=== PATIENT | male | born 1995 | race Caucasian/White ===

== ENCOUNTER 2024-11-10 14:33 | Emergency (ER) | payer OTHER, SELFPAY ==
--- NOTE | ~2024-11-10 | CT_ITS ---
EXAMINATION: CT abdomen pelvis w con DATE: 11/10/2024 17:01 INDICATION: Left upper quadrant abdominal pain. Flank pain. TECHNIQUE: Computed tomography (CT) of the abdomen and pelvis was performed with 100 mL Omnipaque 350 intravenous contrast. Automated exposure control and iterative reconstruction technique were employe d. The dose-length product was 512.62 mGy-cm. COMPARISON: Chest CT 12/09/2013 FINDINGS: The visualized portions of the lung bases are clear without pneumonia or pleural effusion. The heart size is normal. No pericardial effusion. The liver demonstrates steatosis adjacent to the l igamentum teres. The gallbladder, spleen, pancreas, adrenal glands, and kidneys are normal. The prost ate is mildly enlarged. The appendix is normal. There are no dilated loops of bowel. There are no pat hologically enlarged lymph nodes. There is no free intraperitoneal fluid. There are chronic bilateral L5 pars defects. There is 4 mm anterolisthesis of L5 on S1. There is mild thoracic and lumbar spondy losis. IMPRESSION: 1. No etiology for the patient's symptoms. Reviewed, dictated and finalized at location A. IAN RUBBER
[2024-11-10 14:58] VITALS: BP 115/81; PULSE 102; RESP 18; TEMP 36.7; O2SAT 100
[2024-11-10 16:17] LABS: Basophils Percent Auto 0.4 % (0.2-1.2); Eosinophils Absolute Auto 0.2 K/mm3 (0-0.3); Eosinophils Percent Auto 1.8 % (0-4.4); Hemoglobin 15.2 g/dL (14.0-18.0); Immature Granulocyte Absolute 0.02 K/mm3 (0.00-0.031); Immature Granulocyte Percent A 0.2 % (0-0.5); Lymphocytes Absolute Auto 2.41 K/mm3 (0.9-3.2); Lymphocytes Percent Auto 24.4 % (18.3-44.2); Mean Corpuscular HGB Conc 36.2 g/dl (32-36); Mean Corpuscular Hemoglobin 32.6 pg (26-34); Mean Corpuscular Volume 90.1 fl (80-100); Mean Platelet Volume 9.7 fl (7.4-10.4); Monocytes Absolute Auto 0.8 K/mm3 (0.1-0.6); Neutrophils Absolute Auto 6.4 K/mm3 (1.3-6.7); Neutrophils Percent Auto 65.2 % (45.5-73.1); Platelet Count Result 195 k/mm3 (150-375); Red Blood Count 4.66 M/mm3 (4.6-6.20); Red Cell Distribution Width 12.1 % (11.5-14.5); White Blood Count 9.9 K/mm3 (4.5-10.0)
[2024-11-10 16:19] LABS: Add Urine Microscopic? NO; Appearance Urine Clear (Clear); Bilirubin Urine Negative (Negative); Blood Urine Negative (Negative); Color Urine Yellow (Yellow); Glucose Urine UA Negative (Negative); Ketones Urine 1+ mg/dL (Negative); Leukocyte Esterase Ur Negative LEU/UL (Negative); Nitrate Urine Negative (Negative); Protein Urine Negative (Negative); Specific Grav Ur 1.019 (1.001-1.035); pH Urine 5.5 (5.0-9.0)
[2024-11-10 16:42] LABS: Alanine Aminotransferase 18 U/L (6-50); Albumin Level 4.9 g/dL (3.5-5.1); Alkaline Phosphatase 90 U/L (38-126); Anion Gap 4 mmol/L (4-12); Aspartate Amino Transferase 27 U/L (17-59); Bilirubin,Total 0.7 mg/dL (0.2-1.3); Blood Urea Nitrogen 17 mg/dL (9-20); Calcium 9.9 mg/dL (8.4-10.2); Carbon Dioxide 30 mmol/L (22-30); Chloride 103 mmol/L (98-107); Estimated CRCL calculation 137 ml/min; Estimated Glomerular Filt Rate > 60; Glucose 97 mg/dL (65-110); Lipase 60 U/L (23-300); Potassium 4.6 mmol/L (3.4-5.0); Sodium 137 mmol/L (137-145)
[2024-11-10] MEDS: SODIUM CHLORIDE 0.9% IV 1,000 ML 999 ML IV CONT (16:42)
--- NOTE | 2024-11-10 17:56 | ED_ITS ---
HPI - General Adult General Chief complaint: Abdominal Pain Stated complaint: abd pain Time Seen by Provider: 11/10/24 16:06 History of Present Illness HPI narrative: this is a 28-year-old male presenting ED chief complaint of abd pain. Patient says the pain started yesterday. The sharp pain in his left upper quadrant. It is nonradiating, constant in intensity, he has had this once 5 years ago and resolved without intervention. No exacerbating alleviating symptoms. No fevers chills nausea vomiting diarrhea. No urinary symptoms. He has had constipation. Related Data Allergies Allergy/AdvReac Type Severity Reaction Status Date / Time naproxyn Allergy Mild unknown Uncoded 03/03/18 14:18 Exam 2 Narrative: APPEARANCE: No apparent distress. Head: atraumatic. EYES: EOMI, NOSE: Atraumatic NECK: Trachea midline RESPIRATORY: No increased rate of breathing clear to auscultation CARDIOVASCULAR: RRR, no peripheral edema ABDOMINAL: Non-distended soft nontender no CVA tenderness MUSCULOSKELETAl: No obvious deformities NEURO: Alert. Moving 4/4 extremities SKIN:: Warm, dry. Normal color PSYCHIATRIC: Normal affect Course Vital Signs Vital signs: Vital Signs Temperature 98.1 F 11/10/24 14:58 Pulse Rate 102 H 11/10/24 14:58 Respiratory Rate 18 11/10/24 14:58 Blood Pressure 115/81 11/10/24 14:58 Pulse Oximetry 100 11/10/24 14:58 Oxygen Delivery Room Air 11/10/24 14:58 Temperature 98.1 F 11/10/24 14:58 Pulse Rate 102 H 11/10/24 14:58 Respiratory Rate 18 11/10/24 14:58 Blood Pressure 115/81 11/10/24 14:58 Pulse Oximetry 100 11/10/24 14:58 Oxygen Delivery Room Air 11/10/24 14:58 Medical Decision Making [facility] Narrative Medical decision making narrative: -Course: 28-year-old male presenting with nonspecific abdominal pain. Abdominal exam is benign. Mildly tachycardic in triage but normal heart rate on my exam. CT did not reveal an Etiology the patient's pain. Urinary studies and blood work were unremarkable. Patient noted that he has been constipated which could be a cause of his pain. Patient discharged with primary care follow-up return precautions. -DDX includes but is not limited to: Gastritis, constipation, gallbladder disease, pancreatitis, kidney disease -Independent interpretation of studies: labs and imaging reviewed -Interventions:1 L NS -Shared decision making / Disposition:discharged. Vital Signs Vital Signs: Vital Signs Temperature 98.1 F 11/10/24 14:58 Pulse Rate 102 H 11/10/24 14:58 Respiratory Rate 18 11/10/24 14:58 Blood Pressure 115/81 11/10/24 14:58 Pulse Oximetry 100 11/10/24 14:58 Oxygen Delivery Room Air 11/10/24 14:58 Temperature 98.1 F 11/10/24 14:58 Pulse Rate 102 H 11/10/24 14:58 Respiratory Rate 18 11/10/24 14:58 Blood Pressure 115/81 11/10/24 14:58 Pulse Oximetry 100 11/10/24 14:58 Oxygen Delivery Room Air 11/10/24 14:58 Lab Data 11/10/24 16:10 11/10/24 16:10 Labs: Lab Results 11/10/24 Range/Units 16:10 WBC 9.9 (4.5-10.0) K/mm3 RBC 4.66 (4.6-6.20) M/mm3 Hgb 15.2 (14.0-18.0) g/dL Hct 42.0 (42.0-52.0) % MCV 90.1 (80-100) fl MCH 32.6 (26-34) pg MCHC 36.2 H (32-36) g/dl RDW 12.1 (11.5-14.5) % Plt Count 195 (150-375) k/mm3 MPV 9.7 (7.4-10.4) fl Immature Gran % (Auto) 0.2 (0-0.5) % Neut % (Auto) 65.2 (45.5-73.1) % Lymph % (Auto) 24.4 (18.3-44.2) % [place] % (Auto) 8.0 (2.6-8.5) % Eos % (Auto) 1.8 (0-4.4) % Baso % (Auto) 0.4 (0.2-1.2) % Lymph # (Auto) 2.41 (0.9-3.2) K/mm3 [place] # (Auto) 0.8 H (0.1-0.6) K/mm3 Eos # (Auto) 0.2 (0-0.3) K/mm3 Baso # (Auto) 0.0 (0.0-0.1) K/mm3 Abs Immat Gran (auto) 0.02 (0.00-0.031) K/mm3 Absolute Neuts (auto) 6.4 (1.3-6.7) K/mm3 Absolute Nucleated RBC 0.000 (0.0-0.012) K/mm3 Nucleated RBC % 0.0 (0.0-0.2) % Sodium 137 (137-145) mmol/L Potassium 4.6 (3.4-5.0) mmol/L Chloride 103 (98-107) mmol/L Carbon Dioxide 30 (22-30) mmol/L Anion Gap 4 (4-12) mmol/L BUN 17 (9-20) mg/dL Creatinine 0.80 (0.7-1.3) mg/dL Estim Creat Clear Calc 137 ml/min Estimated GFR > 60 (59 - ) Glucose 97 (65-110) mg/dL Calcium 9.9 (8.4-10.2) mg/dL Total Bilirubin 0.7 (0.2-1.3) mg/dL AST 27 (17-59) U/L ALT 18 (6-50) U/L Alkaline Phosphatase 90 (38-126) U/L Total Protein 8.0 (6.3-8.2) g/dL Albumin 4.9 (3.5-5.1) g/dL Lipase 60 (23-300) U/L Urine Color Yellow (Yellow) Urine Appearance Clear (Clear) Urine pH 5.5 (5.0-9.0) Ur Specific [place] 1.019 (1.001-1.035) Urine Protein Negative (Negative) mg/dL Urine Glucose (UA) Negative (Negative) mg/dL Urine Ketones 1+ H (Negative) mg/dL Ur Blood (Man) Negative (Negative) Urine Nitrate Negative (Negative) Urine Bilirubin Negative (Negative) Urine Urobilinogen 1.0 (<2.0) mg/dL Leukocyte Esterase Rfl Negative (Negative) MAXINE/UL Discharge Plan Discharge Clinical Impression: Abdominal pain Patient Disposition: Home, Self-Care Condition: Stable Instructions: Antibiotic Form, Abdominal Pain (ED) Additional Instructions: you were seen in the emergency department for abdominal pain. There is no clear source of your pain. It may be related to constipation and you can try drinking plenty of fluids and using stool softeners. Please follow-up with your primary care physician. If you develop severe abdominal pain or intractable nausea vomiting please return to the ED for re-evaluation. Patient Language: Faroese Follow-up/Referrals: Rick,Sola Grant NP [Primary Care Provider] -
[2024-11-10 18:08] VITALS: BP 136/78; PULSE 79; RESP 17; TEMP 36.8; O2SAT 98
== END 2024-11-10 18:13 | disposition home or self-care (01) ==
PROVIDERS: Emergency Medicine; Emergency Provider Emergency Medicine; PCP Nurse Practitioner
DX: R10.12 Left upper quadrant pain (principal)
CPT/HCPCS: 36415; 74177; 80053; 81003; 83690; 85025; 96360; 99284; J7030; Q9967

== ENCOUNTER 2025-11-22 17:29 | Emergency (ER) | payer OTHER, SELFPAY ==
--- OUTSIDE RECORDS SUMMARY | 2025-11-22 17:31 | XMS_ITS | Clinical Summary ---
Author Organization [facility] Address [facility] [place] [address] Care Team Providers Care Hand Sole Sewer Name Role Phone None, Provider MD Primary Care Provider Unavaila ble Allergies No known active allergies Medications No known medications Active Problems No known active problems Family History Medical History Relation Comments Heart Disease Maternal Grandfather Relation Status Comments Maternal Grandfather Social History Tobacco Use Types Packs/Day Years Used Date Smoking Tobacco: Every Day Cigarettes Smokeless Tobacco: Never Alcohol Use Standard Drinks/Week Comments Yes 0 (1 standard drink = 0.6 oz pur e alcohol) rarely Sex and Gender Information Value Date Recorded Sex Assigned at Not on file Legal Sex Male 8:52 PM CDT Gender Identity Not on file Sexual Orientation Not on file Last Filed Vital Signs Vital Sign Reading Time Taken Comments Blood Pressure 142/66 02/19/2024 12:11 PM CDT Pulse 66 02/19/2024 12:11 PM CDT Temperature 36.7 C (98.1 F) 02/19/2024 12:11 PM CDT Respiratory Rate 18 02/19/2024 12:11 PM CDT Oxygen Saturation 99% 02/19/2024 12:11 PM CDT Inhaled Oxygen Concentration - - Weight 102.1 kg (225 lb) 02/19/2024 10:15 AM CDT Height 188 cm (6' 2) 02/19/2024 10:15 AM CDT Body Mass Index 28.89 02/19/2024 10:15 AM CDT Plan of Treatment Health Maintenance Due Date Last Done Comments Annual Physical 1996 Hepatitis C 2011 DTaP, Tdap and Td Vaccines ( 1 - Tdap) 2012 02/14/1994 Hepatitis B Vaccines (1 of 3 - 19+ 3-dose series) 2012 Pneumococcal Vaccine: Pediat rics (0 to 5 Years) and At-Risk Patients (6 to 49 Years) (1 of 2 - PCV) 2012 HPV Vaccines (1 - 3-dose SCD M series) 2020 COVID-19 Vaccine (1 - 2024-2 6 season) 2025 Influenza Adult (#1) 2025 Hepatitis A Vaccines Aged Out No long er eligible based on patient's age to complete this topic Meningococcal B Vaccine Aged Out No l onger eligible based on patient's age to complete this topic Meningococcal Vaccine Aged Out No harley shoshana eligible based on patient's age to complete this topic RSV Immunizations Under 20 Months Aged Out No longer eligible based on patient's age to complete this topic [place] [address] [place] [address] Care Teams Hand Sole Sewer Relationship Specialty Start Date End Date None, Provider, PCP - General 06/24/20
--- OUTSIDE RECORDS SUMMARY | 2025-11-22 17:31 | XMS_ITS | Clinical Summary ---
Author Organization [facility] [employer] Address [address] [place] [address] Care Team Providers Care Milking Worker Name Role Phone Sandra Jimenez MD Primary Care Provider Source Comments [facility] [employer],non-owned Affiliates and Associated Physician Practices is amultiple site organization consisting of ambulatory clinics and hospital sitesin [place], [place], [place] and [place]. This disclosure is being madepursuant to the Care Everywhere program and may not contain all information available regarding this patient. Last updated 18.[facility] [employer] Allergies No known active allergies Medications * Be aware that medications may not be up to date on this document. Alwaysverify current medications with the patient. 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 Gender Identity Not on file Sexual Orientation Not on file Plan of Treatment Health Maintenance Due Date Last Done Comments HIV SCREENING 2008 HEPATITIS C SCREENING 12/12/2011 DTAP/TDAP/TD VACCINES (1 - Tdap) 2012 HEPATITIS B VACCINE (1 of 3 - 19+ 3-dose series) 2012 HPV VACCINE (1 - 3-dose SCDM series) 2020 DEPRESSION SCREENING 11/25/2024 COVID-19 VACCINE (1 - 2024-2 6 season) 2025 INFLUENZA VACCINE (#1) 2025 ZOSTER VACCINE (1 of 2) 2043 HIB VACCINE Aged Out No longer eligi ble based on patient's age to complete this topic MENINGOCOCCAL (Group B) VACC INE SHARED DECISION-MAKING Aged Out No longer eligibl e based on patient's age to complete this topic MENINGOCOCCAL GROUPS A/C/Y/W VACCINE Aged Out No longer eligible b ased on patient's age to complete this topic PNEUMOCOCCAL VACCINE Aged Out No long er eligible based on patient's age to complete this topic Care Teams Milking Worker Relationship Specialty Start Date End Date Sandra Jimenez MD [address] [place] [id number] PCP - General 12/06/11
--- OUTSIDE RECORDS SUMMARY | 2025-11-22 17:31 | XMS_ITS | Clinical Summary ---
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 Gender Identity Not on file Sexual Orientation Not on file Plan of Treatment Health Maintenance Due Date Last Done Comments Hepatitis C Virus (HCV) Screening 1993 TdaP Immunization 1993 Human Papillomavirus (HPV) Immunization (1 - 3-dose SCDM series) 2020 Influenza Immunization (#1) 2025 SARS-COV-2 Immunization ( season) 2025 Respiratory Syncytial Virus (RSV) Immunization (Adult) (1 - 1-dose 75+ series) 2068 DTaP/Tdap/Td Immunization Discontinued 1993, 02/14/1994 Hepatitis B Immunization Completed 994, 02/14/1994, 1993 Meningococcal Immunization (ACWY) Aged Out No longer eligible based on patient's age to complete this topic Pneumococcal Immunization Combined Aged Out No longer eligible based on patient's age to complete this topic Rotavirus Immunization Aged Out No lo nger eligible based on patient's age to complete this topic
[2025-11-22 17:37] VITALS: BP 131/84; PULSE 105; RESP 12; TEMP 36.4; O2SAT 100
--- NOTE | 2025-11-22 18:47 | ED_ITS ---
HPI - Nausea/Vomiting/Diarrhea General Chief complaint: Nausea/Vomiting/Diarrhea Stated complaint: RT Side Pain Time Seen by Provider: 11/22/25 18:36 Source: patient and RN notes reviewed Mode of arrival: ambulatory Limitations: no limitations History of Present Illness HPI Narrative: 29-year-old male patient presents today complaining of a one-week history of right upper quadrant pain worsening since onset, with nausea and chills. Pain increases with eating and lying prone. Denies vomiting or fever. Normal stool today. Currently rates his pain 6/10 and has tried an ice pack with mild relief. Smokes 1 pack per day. Never drinks alcohol. Related Data Home Medications ?Medication ?Instructions ?Recorded ?Confirmed ?Last Taken ?Type No Home Medications 11/22/25 11/22/25 U nknown History Allergies Allergy/AdvReac Type Severity Reaction Status Date / Time No Known Allergies Allergy Verified 11/22/25 17:57 [facility] Social History Social History (Updated 11/22/25 @ 18:52 by Jacqueline Felder, ESTHETICS INSTRUCTOR, MEDICAL ASSISTANT DERMATOLOGY) Smoking packs per day: 1 Smoking cigarettes per day: 20.0 Alcohol intake: never Comments At time of signature, I have reviewed and agree with nursing past medical, surgical, social and family history unless otherwise noted. Please see nursing chart for further information. There is no relevant family history pertinent to the presenting complaint Exam Narrative: GENERAL: Well-appearing, well-nourished, and in no acute distress. HEAD: Normocephalic, atraumatic. EYES: EOMI. No redness or drainage. Conjunctivae normal. ENT: Mucous membranes pink and moist. Nares clear. No rhinorrhea. TMs normal bilaterally. Throat normal. Uvula midline. NECK: Normal AROM. Supple. No lymphadenopathy. CHEST: No respiratory distress. Clear to auscultation. HEART: Regular rate and rhythm. No murmur appreciated. ABDOMEN: Soft,nondistended, normal active bowel sounds. Right upper quadrant tenderness with palpable liver margin. EXTREMITIES: Normal range of motion. No edema. SKIN: Warm, dry, no rash. Capillary refill normal. Normal skin turgor. NEURO: No focal deficits. Alert and oriented x3. Gait steady. PSYCH: Normal affect. No signs of depression or anxiety. Course Course Level of Care: Express Care Visit Vital Signs Vital signs: Vital Signs Temperature 97.5 F L 12/29/25 17:37 Pulse Rate 105 H 11/22/25 17:37 Respiratory Rate 12 11/22/25 17:37 Blood Pressure 131/84 11/22/25 17:37 Pulse Oximetry 100 11/22/25 17:37 Oxygen Delivery Room Air 11/22/25 17:37 Temperature 97.5 F L 11/22/25 17:37 Pulse Rate 105 H 11/22/25 17:37 Respiratory Rate 12 11/22/25 17:37 Blood Pressure 131/84 11/22/25 17:37 Pulse Oximetry 100 11/22/25 17:37 Oxygen Delivery Room Air 11/22/25 17:37 Reviewed Transfer Transfered to: [facility]: Other (Private vehicle) Transfer rationale: Right upper quadrant abdominal pain Accepting physician: Selvin. Report given to Jose Morris PA-C [facility] MDM Narrative Medical decision making narrative: 29-year-old male patient presents today complaining of a one-week history of right upper quadrant pain worsening since onset, with nausea and chills. Pain increases with eating and lying prone. Denies vomiting or fever. Normal stool today. Currently rates his pain 6/10 and has tried an ice pack with mild relief. Smokes 1 pack per day. Never drinks alcohol. Upon exam, patient has tenderness in the right upper quadrant with palpable liver edge. No rebound or guarding. Patient will be transferred to the ER at [facility] for further evaluation and treatment. Vital signs stable with slight tachycardia at 105. Patient agrees with plan. Differential Diagnosis Differential Diagnosis: Cholecystitis, gallstones, hepatitis Critical Care Time Critical Care Time Critical Care Time: No Discharge Plan Discharge Clinical Impression: Abdominal pain, acute, right upper quadrant Patient Disposition: Acute Care Hospital Condition: Stable Patient Language: Italian Prescriptions: No Action No Home Medications Follow-up/Referrals: PHYSICIAN,RODEO CLOWN [Primary Care Provider, Internal Medicine] Time of Disposition: 18:50
== END 2025-11-22 18:53 | disposition short-term general hospital (02) ==
PROVIDERS: Emergency Provider Nurse Practitioner
DX: R10.11 Right upper quadrant pain (principal); R11.0 Nausea; R68.83 Chills (without fever)
CPT/HCPCS: 99212; G0463

== ENCOUNTER 2025-11-22 19:06 | Emergency (ER) | payer OTHER, SELFPAY ==
--- NOTE | ~2025-11-22 | CT_ITS ---
EXAMINATION: CT abdomen pelvis w con DATE: 11/23/2025 00:50 INDICATION: Right upper quadrant abdominal pain. TECHNIQUE: Computed tomography (CT) of the abdomen and pelvis was performed with 100 mL Omnipaque 350 intravenous contrast. Automated exposure control and iterative reconstruction technique were employed. The dose-length product was 514.30 mGy-cm. COMPARISON: CT abdomen and pelvis 11/10/2024 FINDINGS: The visualized portions of the lung bases are clear without pneumonia or pleural effusion. The heart size is normal. No pericardial effusion. The liver, gallbladder, spleen, pancreas, adrenal glands, and kidneys are normal. There are no dilated loops of bowel. The appendix is normal. There are no pathologically enlarged lymph nodes. There is no ascites. 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 There is 5 mm anterolisthesis of L5 on S1. There is mild thoracic spondylosis and moderate lumbar spondylosis. IMPRESSION: 1. No etiology for the patient's symptoms. Reviewed, dictated and finalized at location E. BASTING COLLAR BASTER
[2025-11-22 19:09] VITALS: BP 145/88; PULSE 112; RESP 18; TEMP 36.7; O2SAT 100
--- OUTSIDE RECORDS SUMMARY | 2025-11-22 19:09 | XMS_ITS | Clinical Summary ---
Author Organization 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
--- OUTSIDE RECORDS SUMMARY | 2025-11-22 19:09 | XMS_ITS | Clinical Summary ---
Author Organization [facility] Address [facility] [place] [address] Care Team Providers Care Federal Mediator Name Role Phone None, Provider MD Primary [...] patient's age to complete this topic [place] [address] [place] [address] Care Teams Federal Mediator Relationship Specialty Start Date End Date None, Provider, PCP - General 06/24/20
[2025-11-22 23:09] VITALS: BP 159/76; PULSE 90; RESP 18; TEMP 36.3; O2SAT 100
[2025-11-22 23:30] LABS: Hematocrit 45.2 % (42.0-52.0); Hemoglobin 16.2 g/dL (14.0-18.0); Immature Granulocyte Percent A 0.1 % (0-0.5); Lymphocytes Absolute Auto 1.50 K/mm3 (0.9-3.2); Mean Corpuscular HGB Conc 35.8 g/dl (32-36); Mean Corpuscular Hemoglobin 32.5 pg (26-34); Mean Corpuscular Volume 90.6 fl (80-100); Nucleated Red Blood Cells Absolute Auto 0.000 K/mm3 (0.0-0.012); Nucleated Red Blood Cells Perc 0.0 % (0.0-0.2); Platelet Count Result 185 k/mm3 (150-375); Red Blood Count 4.99 M/mm3 (4.6-6.20); White Blood Count 8.1 K/mm3 (4.5-10.0)
[2025-11-22 23:33] LABS: Add Urine Microscopic? NO; Appearance Urine Clear (Clear); Glucose Urine UA Negative (Negative); Leukocyte Esterase Ur Negative LEU/UL (Negative); Nitrate Urine Negative (Negative); Specific Grav Ur 1.012 (1.001-1.035)
[2025-11-22 23:39] LABS: Alanine Aminotransferase 29 U/L (6-50); Albumin Level 4.8 g/dL (3.5-5.1); Alkaline Phosphatase 114 U/L (38-126); Anion Gap 10 mmol/L (4-12); Aspartate Amino Transferase 31 U/L (17-59); Bilirubin,Total 0.5 mg/dL (0.2-1.3); Blood Urea Nitrogen 12 mg/dL (9-20); Calcium 9.5 mg/dL (8.4-10.2); Carbon Dioxide 26 mmol/L (22-30); Chloride 103 mmol/L (98-107); Estimated CRCL calculation 131 ml/min; Estimated Glomerular Filt Rate > 60; Glucose 109 mg/dL (65-110); Lipase 45 U/L (23-300); Potassium 4.1 mmol/L (3.4-5.0); Sodium 139 mmol/L (137-145); Total Protein 8.2 g/dL (6.3-8.2)
--- NOTE | 2025-11-23 00:31 | ED_ITS ---
HPI - Abdominal Pain General Chief Complaint: Abdominal Pain <Amita Morris PA-C - Last Filed: 11/24/25 17:36> Stated Complaint: RUQ pain with nausea x 1 week <Amita Morris PA-C - Last Filed: 11/24/25 17:36> Time Seen by Provider: 11/23/25 00:08 <Amita Morris PA-C - Last Filed: 11/24/25 17:36> Source: patient <Amita TaraSammy NAKUL Morris Last Filed: 11/24/25 17:36> Mode of arrival: ambulatory <NAKUL Baer Last Filed: 11/24/25 17:36> Limitations: no limitations <NAKUL Baer Last Filed: 11/24/25 17:36> History of Present Illness HPI narrative: This is a 29 year old male that presents to the ER for right upper quadrant abdominal pain. Worsening over the last week. Reports associated nausea. No known alleviating or exacerbating factors. Denies fevers, vomiting. <Amita Morris PA-C - Last Filed: 11/24/25 17:36> Related Data Home Medications: Home Medications ?Medication ?Instructions ?Recorded ?Confirmed ?Last Taken ?Type No Home Medications 11/22/25 11/22/25 U nknown History <NAKUL Baer Last Filed: 11/24/25 17:36> Allergies/Adverse Reactions: Allergies Allergy/AdvReac Type Severity Reaction Status Date / Time No Known Allergies Allergy Verified 11/22/25 17:57 <Amita Morris PA-C - Last Filed: 11/24/25 17:36> Review of Systems 2 Review of Systems: All systems reviewed & are unremarkable except as noted in HPI and below <NAKUL Baer Last Filed: 11/24/25 17:36> [facility] Social History Social History: Social History (Updated 11/22/25 @ 18:52 by Jacqueline Felder, [employer] MERCHANDISING, COMPOSITE SCIENCE TEACHER) Smoking packs per day: 1 Smoking cigarettes per day: 20.0 Alcohol intake: never <Amita Morris PA-C - Last Filed: 11/24/25 17:36> Exam 2 Narrative: GENERAL: Well-appearing, well-nourished, and in no acute distress. HEAD: Normocephalic, atraumatic. EYES: EOMI. CHEST: Clear to auscultation. No respiratory distress. No wheezes rales or rhonchi HEART: Regular rate and rhythm. No murmur heard. Normal peripheral pulses. ABDOMEN: Soft, nondistended, normal active bowel sounds. Mild tenderness to palpation in the right upper quadrant, without guardin EXTREMITIES: Normal range of motion. No edema. SKIN: Warm, dry, no rash. NEURO: No focal deficits. Alert and oriented x3. PSYCH: Normal mood and affect <Amita Morris PA-C - Last Filed: 11/24/25 17:36> Course Course Emergency Course: Patient care signed out by previous provider with CT pending and likely discharge if unremarkable. CT unremarkable. VSS Discharge. <Kyle Palmer MD - Last Filed: 11/24/25 22:08> Vital Signs Vital signs: Vital Signs Temperature 36.7 C 11/22/25 19:09 Pulse Rate 112 H 11/22/25 19:09 Respiratory Rate 18 11/22/25 19:09 Blood Pressure 145/88 H 11/22/25 19:09 Pulse Oximetry 100 11/22/25 19:09 Oxygen Delivery Room Air 11/22/25 19:09 Temperature 36.4 C 11/23/25 06:30 Pulse Rate 72 11/23/25 06:30 Respiratory Rate 14 11/23/25 06:30 Blood Pressure 147/91 H 11/23/25 06:30 Pulse Oximetry 100 11/23/25 06:30 Oxygen Delivery Room Air 11/22/25 19:09 <Amita Morris PA-C - Last Filed: 11/24/25 17:36> Vital Signs Temperature 36.7 C 11/22/25 19:09 Pulse Rate 112 H 11/22/25 19:09 Respiratory Rate 18 11/22/25 19:09 Blood Pressure 145/88 H 11/22/25 19:09 Pulse Oximetry 100 11/22/25 19:09 Oxygen Delivery Room Air 11/22/25 19:09 Temperature 36.4 C 11/23/25 06:30 Pulse Rate 72 11/23/25 06:30 Respiratory Rate 14 11/23/25 06:30 Blood Pressure 147/91 H 11/23/25 06:30 Pulse Oximetry 100 11/23/25 06:30 Oxygen Delivery Room Air 11/22/25 19:09 <Kyle Palmer MD - Last Filed: 11/24/25 22:08> [facility] Narrative Medical decision making narrative: Patient presents the emergency department for right upper quadrant abdominal pain. He is afebrile and nontoxic appearing. Tachycardic upon arrival, this normalized without intervention. Cbc without leukocytosis. Metabolic panel without concerning findings. Lipase is normal. Urine without evidence of infection. Care taken over by Dr. Palmer at shift change pending CT scan results <Amita Morris PA-C - Last Filed: 11/24/25 17:36> Differential Diagnosis Differential Diagnosis: Biliary colic, cholecystitis, GERD, esophagitis, pancreatitis <Amita Morris PA-C - Last Filed: 11/24/25 17:36> Lab Data [facility] Lab Attestation statement: I personally reviewed the patient's lab results. <Amita Morris PA-C - Last Filed: 11/24/25 17:36> Result diagrams: 11/22/25 23:06 11/22/25 23:06 <Amita Morris PA-C - Last Filed: 11/24/25 17:36> Labs: Lab Results 11/22/25 Range/Units 23:06 WBC 8.1 (4.5-10.0) K/mm3 RBC 4.99 (4.6-6.20) M/mm3 Hgb 16.2 (14.0-18.0) g/dL Hct 45.2 (42.0-52.0) % MCV 90.6 (80-100) fl MCH 32.5 (26-34) pg MCHC 35.8 (32-36) g/dl RDW 12.3 (11.5-14.5) % Plt Count 185 (150-375) k/mm3 MPV 9.9 (7.4-10.4) fl Immature Gran % (Auto) 0.1 (0-0.5) % Neut % (Auto) 68.1 (45.5-73.1) % Lymph % (Auto) 18.5 (18.3-44.2) % [place] % (Auto) 12.4 H (2.6-8.5) % Eos % (Auto) 0.4 (0-4.4) % Baso % (Auto) 0.5 (0.2-1.2) % Lymph # (Auto) 1.50 (0.9-3.2) K/mm3 [place] # (Auto) 1.0 H (0.1-0.6) K/mm3 Eos # (Auto) 0.0 (0-0.3) K/mm3 Baso # (Auto) 0.0 (0.0-0.1) K/mm3 Abs Immat Gran (auto) 0.01 (0.00-0.031) K/mm3 Absolute Neuts (auto) 5.5 (1.3-6.7) K/mm3 Absolute Nucleated RBC 0.000 (0.0-0.012) K/mm3 Nucleated RBC % 0.0 (0.0-0.2) % Sodium 139 (137-145) mmol/L Potassium 4.1 (3.4-5.0) mmol/L Chloride 103 (98-107) mmol/L Carbon Dioxide 26 (22-30) mmol/L Anion Gap 10 (4-12) mmol/L BUN 12 D (9-20) mg/dL Creatinine 0.83 (0.7-1.3) mg/dL Estim Creat Clear Calc 131 ml/min Estimated GFR > 60 (59 - ) Glucose 109 (65-110) mg/dL Calcium 9.5 (8.4-10.2) mg/dL Total Bilirubin 0.5 (0.2-1.3) mg/dL AST 31 (17-59) U/L ALT 29 (6-50) U/L Alkaline Phosphatase 114 (38-126) U/L Total Protein 8.2 (6.3-8.2) g/dL Albumin 4.8 (3.5-5.1) g/dL Lipase 45 (23-300) U/L Urine Color Yellow (Yellow) Urine Appearance Clear (Clear) Urine pH 5.5 (5.0-9.0) Ur Specific [place] 1.012 (1.001-1.035) Urine Protein Negative (Negative) mg/dL Urine Glucose (UA) Negative (Negative) mg/dL Urine Ketones Trace H (Negative) mg/dL Ur Blood (Man) Negative (Negative) Urine Nitrate Negative (Negative) Urine Bilirubin Negative (Negative) Urine Urobilinogen 1.0 (<2.0) mg/dL Leukocyte Esterase Rfl Negative (Negative) MAXINE/UL <Amita Morris PA-C - Last Filed: 11/24/25 17:36> Lab Results 11/22/25 Range/Units 23:06 WBC 8.1 (4.5-10.0) K/mm3 RBC 4.99 (4.6-6.20) M/mm3 Hgb 16.2 (14.0-18.0) g/dL Hct 45.2 (42.0-52.0) % MCV 90.6 (80-100) fl MCH 32.5 (26-34) pg MCHC 35.8 (32-36) g/dl RDW 12.3 (11.5-14.5) % Plt Count 185 (150-375) k/mm3 MPV 9.9 (7.4-10.4) fl Immature Gran % (Auto) 0.1 (0-0.5) % Neut % (Auto) 68.1 (45.5-73.1) % Lymph % (Auto) 18.5 (18.3-44.2) % [place] % (Auto) 12.4 H (2.6-8.5) % Eos % (Auto) 0.4 (0-4.4) % Baso % (Auto) 0.5 (0.2-1.2) % Lymph # (Auto) 1.50 (0.9-3.2) K/mm3 [place] # (Auto) 1.0 H (0.1-0.6) K/mm3 Eos # (Auto) 0.0 (0-0.3) K/mm3 Baso # (Auto) 0.0 (0.0-0.1) K/mm3 Abs Immat Gran (auto) 0.01 (0.00-0.031) K/mm3 Absolute Neuts (auto) 5.5 (1.3-6.7) K/mm3 Absolute Nucleated RBC 0.000 (0.0-0.012) K/mm3 Nucleated RBC % 0.0 (0.0-0.2) % Sodium 139 (137-145) mmol/L Potassium 4.1 (3.4-5.0) mmol/L Chloride 103 (98-107) mmol/L Carbon Dioxide 26 (22-30) mmol/L Anion Gap 10 (4-12) mmol/L BUN 12 D (9-20) mg/dL Creatinine 0.83 (0.7-1.3) mg/dL Estim Creat Clear Calc 131 ml/min Estimated GFR > 60 (59 - ) Glucose 109 (65-110) mg/dL Calcium 9.5 (8.4-10.2) mg/dL Total Bilirubin 0.5 (0.2-1.3) mg/dL AST 31 (17-59) U/L ALT 29 (6-50) U/L Alkaline Phosphatase 114 (38-126) U/L Total Protein 8.2 (6.3-8.2) g/dL Albumin 4.8 (3.5-5.1) g/dL Lipase 45 (23-300) U/L Urine Color Yellow (Yellow) Urine Appearance Clear (Clear) Urine pH 5.5 (5.0-9.0) Ur Specific [place] 1.012 (1.001-1.035) Urine Protein Negative (Negative) mg/dL Urine Glucose (UA) Negative (Negative) mg/dL Urine Ketones Trace H (Negative) mg/dL Ur Blood (Man) Negative (Negative) Urine Nitrate Negative (Negative) Urine Bilirubin Negative (Negative) Urine Urobilinogen 1.0 (<2.0) mg/dL Leukocyte Esterase Rfl Negative (Negative) MAXINE/UL <Kyle Palmer MD - Last Filed: 11/24/25 22:08> Imaging Data Radiologist's impression: ITS Impressions Abdomen/Pelvis CT 11/23/25 07:19 IMPRESSION: 1. No etiology for the patient's symptoms. <Amita Morris PA-C - Last Filed: 11/24/25 17:36> ITS Impressions Abdomen/Pelvis CT 11/23/25 07:19 IMPRESSION: 1. No etiology for the patient's symptoms. <Kyle Palmer MD - Last Filed: 11/24/25 22:08> Critical Care Time Critical Care Time Critical Care Time: No <Amita Morris PA-C - Last Filed: 11/24/25 17:36> Discharge Plan Discharge Clinical Impression: Biliary colic <Amita Morris PA-C - Last Filed: 11/24/25 17:36> Patient Disposition: Home <Amita Morris PA-C - Last Filed: 11/24/25 17:36> Condition: Improved <Amita Morris PA-C - Last Filed: 11/24/25 17:36> Instructions: Biliary Colic (ED), Low Fat Diet (ED) <Amita Morris PA-C - Last Filed: 11/24/25 17:36> Additional Instructions: Return to the ER if you experience fever, abdominal pain with nausea and vomiting, you are unable to keep down liquids or solids, or any other symptoms that are concerning to you Low fat diet. Tylenol or Ibuprofen as needed for pain Follow up with general surgery <Amita Morris PA-C - Last Filed: 11/24/25 17:36> Patient Language: Irish <Amita Morris PA-C - Last Filed: 11/24/25 17:36> Prescriptions: No Action No Home Medications <Amita Morris PA-C - Last Filed: 11/24/25 17:36> Follow-up/Referrals: Rosalie Lai MD [Physician, General Surgery] PHYSICIAN,ELECTRIC MOTOR REPAIRING SUPERVISOR [Primary Care Provider, Internal Medicine] <Amita Morris PA-C - Last Filed: 11/24/25 17:36> Time of Disposition: 06:11 <Amita Morris PA-C - Last Filed: 11/24/25 17:36> 06:11 <Kyle Palmer MD - Last Filed: 11/24/25 22:08>
--- OUTSIDE RECORDS SUMMARY | 2025-11-23 00:34 | XMS_ITS | Clinical Summary ---
Author Organization [facility] Address [address] [place] [id number] Care Team Providers Care Employment Interviewer Name Role Phone Unavailable Primary Care Provider Unavailabl e Social History Tobacco Use Types Packs/Day Years Used Date Smoking Tobacco: Never Assessed Sex and Gender Information Value Date Recorded Sex Assigned at Not on file Legal Sex Male 7:57 AM [employer]ANDSCAPE D[employer] Gender Identity Not on file Sexual Orientation [...]
--- OUTSIDE RECORDS SUMMARY | 2025-11-23 00:34 | XMS_ITS | Clinical Summary ---
Author Organization [facility] Address [facility] [place] [address] Care Team Providers Care Underwriting Clerk Name Role Phone None, Provider MD Primary [...] patient's age to complete this topic [place] [address] [place] [address] Care Teams Underwriting Clerk Relationship Specialty Start Date End Date None, Provider, PCP - General 06/24/20
[2025-11-23] MEDS: FAMOTIDINE 20 MG/2 ML VIAL IV PUSH (01:09)
[2025-11-23] MEDS: ONDANSETRON INJ 4 MG/2 ML VIAL IV PUSH (01:09)
[2025-11-23] MEDS: KETOROLAC 15 MG/ML VIAL (*BKC) IV PUSH (01:09)
[2025-11-23 03:39] VITALS: BP 144/91; PULSE 62; RESP 14; O2SAT 99
[2025-11-23 05:06] VITALS: BP 128/75; PULSE 68; RESP 14; O2SAT 100
[2025-11-23 06:30] VITALS: BP 147/91; PULSE 72; RESP 14; TEMP 36.4; O2SAT 100
== END 2025-11-23 06:18 | disposition home or self-care (01) ==
PROVIDERS: Student in an Organized Health Care Education/Training Program; Emergency Provider Physician Assistant
DX: R10.11 Right upper quadrant pain (principal); F17.210 Nicotine dependence, cigarettes, uncomplicated
CPT/HCPCS: 36415; 74177; 80053; 81003; 83690; 85025; 96374; 96375; 99284; J1885; J2405; Q9967